=== PATIENT | male | born 1980 | race Caucasian/White ===

== ENCOUNTER → 2019-02-04 | Outpatient (CLI) | payer BC ==
--- NOTE | 2019-02-04 15:23 | REP ---
CHEST PA AND LATERAL: 02/04/2019. COMPARISON: 07/10/2015. CLINICAL HISTORY: Cough. FINDINGS: Two views show the lungs well inflated without infiltrate, effusion, atelectasis, or mass. The heart, mediastinal and hilar contours are grossly normal. Aorta and airway intact. There is no free air under the diaphragm. Bones unremarkable. IMPRESSION: 1. No acute cardiopulmonary change. Electronically Signed by Emmanuel Oliveira MD 02/04/2019 05:22 P
== END ==
LOC: M WUC 11:26
PROVIDERS: ATTEND Physician Assistant
DX: R05 Cough (principal)

== ENCOUNTER → 2019-12-03 | Outpatient (CLI) | payer BC ==
[2019-12-03 14:36] LABS: BASO # 0.1 10^3/uL (0.0-0.2); BASO % 0.7 % (0.0-1.0); EOS # 0.2 10^3/uL (0.0-0.5); EOS % 1.9 % (0.0-3.0); HEMOGLOBIN 16.2 g/dl (13.5-17.5); LYMPH # 3.6 10^3/uL (1.5-5.0); LYMPH % 33.5 % (24.0-44.0); MEAN CORPUSCULAR HEMOGLOBIN 29.5 pg (27.0-33.0); MEAN CORPUSCULAR HGB CONC 34.5 g/dl (32.0-36.5); MEAN CORPUSCULAR VOLUME 85.6 fl (80.0-96.0); MONO # 0.8 10^3/uL (0.0-0.8); NEUTROPHILS # 6.1 10^3/uL (1.5-8.5); NEUTROPHILS % 56.6 % (36.0-66.0); PLATELET COUNT, AUTOMATED 142 10^3/uL (150-450); RED BLOOD COUNT 5.49 10^6/uL (4.30-6.10); WHITE BLOOD COUNT 10.8 10^3/uL (4.0-10.0)
[2019-12-03 14:52] LABS: ALT/SGPT 98 U/L (12-78); BILIRUBIN,TOTAL 0.7 MG/DL (0.2-1.0); BLOOD UREA NITROGEN 10 MG/DL (7-18); CALCIUM LEVEL 8.9 MG/DL (8.5-10.1); CARBON DIOXIDE LEVEL 28 MEQ/L (21-32); CHLORIDE LEVEL 106 MEQ/L (98-107); CHOLESTEROL LEVEL 140 MG/DL (<200); CHOLESTEROL RISK RATIO 5.185 (<5); FREE T4 1.04 NG/DL (0.76-1.46); GLOMERULAR FILTRATION RATE > 60.0 (>60); GLUCOSE, FASTING 94 MG/DL (70-100); HDL CHOLESTEROL 27 MG/DL (>40); LDL CHOLESTEROL 86 MG/DL (<100); NON-HDL-C 113 MG/DL; POTASSIUM SERUM 4.4 MEQ/L (3.5-5.1); SODIUM LEVEL 139 MEQ/L (136-145); THYROID STIMULATING HORMONE 0.971 uIU/ML (0.358-3.740); TOTAL 25(OH) VITAMIN D 17.4 NG/ML (30.0-100.0); TRIGLYCERIDES LEVEL 134 MG/DL (<150)
[2019-12-03 15:45] LABS: HEMOGLOBIN A1c 4.7 %
== END ==
LOC: M WUC 09:05
PROVIDERS: ATTEND Physician Assistant
DX: Z13.220 Encounter for screening for lipoid disorders (principal); Z13.29 Encounter for screening for other suspected endocrine disorder

== ENCOUNTER → 2019-12-16 | Outpatient (CLI) | payer BC ==
[2019-12-16 17:37] LABS: BASO # 0.1 10^3/uL (0.0-0.2); BASO % 0.7 % (0.0-1.0); EOS # 0.3 10^3/uL (0.0-0.5); HEMATOCRIT 43.1 % (42.0-52.0); HEMOGLOBIN 14.7 g/dl (13.5-17.5); LYMPH # 2.9 10^3/uL (1.5-5.0); LYMPH % 38.6 % (24.0-44.0); MEAN CORPUSCULAR HEMOGLOBIN 29.6 pg (27.0-33.0); MEAN CORPUSCULAR HGB CONC 34.1 g/dl (32.0-36.5); MEAN CORPUSCULAR VOLUME 86.9 fl (80.0-96.0); MONO # 0.8 10^3/uL (0.0-0.8); MONO % 10.9 % (0.0-5.0); NEUTROPHILS # 3.4 10^3/uL (1.5-8.5); NEUTROPHILS % 45.5 % (36.0-66.0); PLATELET COUNT, AUTOMATED 177 10^3/uL (150-450); RED BLOOD COUNT 4.96 10^6/uL (4.30-6.10); WHITE BLOOD COUNT 7.4 10^3/uL (4.0-10.0)
[2019-12-22 06:08] LABS: BABESIA MICROTI PCR Negative (Negative); EBV VIRAL CAPSID AG IgM >160.0 U/mL (0.0-35.9); Lyme Disease IgG/IgM Antibodie <0.91 ISR (0.00-0.90); Lyme Disease IgM Ab Quantitati <0.80 index (0.00-0.79)
== END ==
LOC: M WUC 12:07
PROVIDERS: ATTEND Physician Assistant
DX: D72.829 Elevated white blood cell count, unspecified (principal)

== ENCOUNTER 2020-03-26 10:28 | Emergency (ER) | payer BC ==
[~2020-03-26] VITALS: Ht 172.7 cm; Wt 85.5 kg
--- OUTSIDE RECORDS SUMMARY | 2020-03-26 10:34 | CCD | Continuity of Care Document ---
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 AUTM Problems Description No Information Available Social History Type Date Description Comments Sex Unknown ETOH Use Denies alcohol use Tobacco Use Start: Unknown Patient has never smoked Recreational Drug Use Denies Drug Use Sun Exposure Does not use sunscreen Seat Belt/Car Seat Always uses seat belt Allergies, Adverse Reactions, Alerts Description No Known Drug Allergies Medications Active Medications SIG Qnty Indications Ordering Provide r Date Vitamin D (Ergocalciferol) 1.25mg (14907 Ut) Capsules 1 capsule weekly for 12 weeks 12caps Aditi PortilloODinesh 12/05/2019 Valacyclovir HCL 1gm Tablets 2 tablets by mouth at onset of outbreak of cold sore and then 1 tablet in 12 hours. 42tabs B00.89 Carol Nixon D.O. 08/20/2019 Excedrin Migraine [phone] Tab lets as needed pain Unknown Immunizations Description No Information Available Vital Signs Date Vital Result Comment 08/20/2019 10:03am BP Systolic 120 mmHg BP Diastolic 80 mmHg Height 67 inches 5'7" Weight 184.25 lb BMI (Body Mass Index) 28.9 kg/m2 Heart Rate 57 /min Respiratory Rate 18 /min Body Temperature 96.7 F O2 % BldC Oximetry 97 % Patterson Body Weight 148 lb Results Test Acquired Date Facility Test Result H/L Range Note Lyme Disease SCRN With Confirm 12/16/2019 [facility] [address] [place] [address] [phone] Lyme Disease IgG/IgM Antibodie <0.91 ISR Normal 0 .00-0.90 1 Lyme Disease IgM Ab Quantitati <0.80 index Normal 0.00-0.79 2 Ehrlichia Detection PCR 12/16/[address] [address] [phone] A. phagocytophilum PCR Negative Normal Negative 3 Ehrlichia chaffeensis PCR Negative Normal Negative 4 Ebv AB Comprehensive 12/16/2019 [facility] [address] [place] [address] [phone] Ebv Viral Capsid Ag IgM >160.0 U/mL High 0.0-35. 9 5 Ebv Viral Capsid Ag IgG 186.0 U/mL High 0.0-17.9 6 Ebv AB To Nuclear Antigen 396.0 U/mL High 0.0-17.9 7 Ebv Interpretation (SEE NOTE) Normal . 8 Laboratory test finding 12/16/2019 [place] [address] [phone] Babesia Microti PCR Negative Normal Negative 9 CBC With Differential 12/16/[address] [address] [phone] White Blood Count 7.4 10 Normal 4.0-10.0 Red Blood Count 4.96 10 Normal 4.30-6.10 Hemoglobin 14.7 g/dL Normal 13.5-17.5 Hematocrit 43.1 % Normal 42.0-52.0 Mean Corpuscular Volume 86.9 fl Normal 80.0-96.0 Mean Corpuscular Hemoglobin 29.6 pg Normal 27.0-33.0 Mean Corpuscular HGB Conc 34.1 g/dL Normal 32.0-36.5 Red Cell Distribution Width 13.1 % Normal 11.5-14.5 Platelet Count, Automated 177 10 Normal 150-450 Neutrophils % 45.5 % Normal 36.0-66.0 Lymph % 38.6 % Normal 24.0-44.0 George % 10.9 % High 0.0-5.0 Eos % 4.0 % High 0.0-3.0 Baso % 0.7 % Normal 0.0-1.0 Immature Granulocyte % 0.3 % Normal 0-3.0 Nucleated Red Blood Cell % 0.0 % Normal 0-0 Neutrophils # 3.4 10 Normal 1.5-8.5 Lymph # 2.9 10 Normal 1.5-5.0 George # 0.8 10 Normal 0.0-0.8 Eos # 0.3 10 Normal 0.0-0.5 Baso # 0.1 10 Normal 0.0-0.2 CBC With Differential 12/03/[address] [address] [phone] White Blood Count 10.8 10 High 4.0-10.0 Red Blood Count 5.49 10 Normal 4.30-6.10 Hemoglobin 16.2 g/dL Normal 13.5-17.5 Hematocrit 47.0 % Normal 42.0-52.0 Mean Corpuscular Volume 85.6 fl Normal 80.0-96.0 Mean Corpuscular Hemoglobin 29.5 pg Normal 27.0-33.0 Mean Corpuscular HGB Conc 34.5 g/dL Normal 32.0-36.5 Red Cell Distribution Width 12.4 % Normal 11.5-14.5 Platelet Count, Automated 142 10 Low 150-450 Neutrophils % 56.6 % Normal 36.0-66.0 Lymph % 33.5 % Normal 24.0-44.0 George % 7.0 % High 0.0-5.0 Eos % 1.9 % Normal 0.0-3.0 Baso % 0.7 % Normal 0.0-1.0 Immature Granulocyte % 0.3 % Normal 0-3.0 Nucleated Red Blood Cell % 0.0 % Normal 0-0 Neutrophils # 6.1 10 Normal 1.5-8.5 Lymph # 3.6 10 Normal 1.5-5.0 George # 0.8 10 Normal 0.0-0.8 Eos # 0.2 10 Normal 0.0-0.5 Baso # 0.1 10 Normal 0.0-0.2 Comprehensive Metabolic Profil 12/03/[address] [address] [phone] Glucose, Fasting 94 mg/dL Normal 70-100 Blood Urea Nitrogen 10 mg/dL Normal 7-18 Creatinine For GFR 1.00 mg/dL Normal 0.70-1.30 Glomerular Filtration Rate > 60.0 Normal >60 1 0 Sodium Level 139 mEq/L Normal 136-145 Potassium Serum 4.4 mEq/L Normal 3.5-5.1 Chloride Level 106 mEq/L Normal 98-107 Carbon Dioxide Level 28 mEq/L Normal 21-32 Anion Gap 5 mEq/L Low 8-16 Calcium Level 8.9 mg/dL Normal 8.5-10.1 Ast/Sgot 45 U/L High 7-37 Alt/SGPT 98 U/L High 12-78 Alkaline Phosphatase 91 U/L Normal 45-117 Bilirubin,Total 0.7 mg/dL Normal 0.2-1.0 Total Protein 7.0 GM/DL Normal 6.4-8.2 Albumin 4.0 GM/DL Normal 3.2-5.2 Albumin/Globulin Ratio 1.3 Normal Lipid Panel 12/03/[address] [address] [phone] Triglycerides Level 134 mg/dL Normal <150 Cholesterol Level 140 mg/dL Normal <200 HDL Cholesterol 27 mg/dL Low >40 LDL Cholesterol 86 mg/dL Normal <100 Non-HDL-C 113 mg/dL Normal Cholesterol Risk Ratio 5.185 High <5 Hemoglobin A1c 12/03/[address] [address] [phone] Hemoglobin A1c 4.7 % Normal 11 Estimated Average Glucose 88 mg/dL Normal 60-110 Laboratory test finding 12/03/[address] [address] [phone] Total 25(Oh) Vitamin D 17.4 NG/ML Low 30.0-100. 0 Thyroid Stimulating Hormone 0.971 uIU/ML Normal 0.358-3.740 Free T4 1.04 ng/dL Normal 0.76-1.46 1 Negative <0.91 Equivocal 0.91 - 1.09 Positive >1.09 2 Negative <0.80 Equivocal 0.80 - 1.19 Positive >1.19 . IgM levels may peak at 3-6 weeks post infection, then gradually decline. 3 No Anaplasma phagocytophilum DNA detected. A. phagocytophilum has been characterized as the causative agent of Human Granulocytic Ehrlichiosis (HGE). . This test was developed and its performance characteristics determined by [facility]. It has not been cleared or approved by the Food and Drug Administration. 4 No Ehrlichia chaffeensis DNA detected. E. chaffeensis has been characterized as the causative agent of Human Monocytic Ehrlichiosis (HME). . This test was developed and its performance characteristics determined by [facility]. It has not been cleared or approved by the Food and Drug Administration. 5 Negative <36.0 Equivocal 36.0 - 43.9 Positive >43.9 6 Negative <18.0 Equivocal 18.0 - 21.9 Positive >21.9 7 Negative <18.0 Equivocal 18.0 - 21.9 Positive >21.9 8 . EBV Interpretation Chart [place]: Antibody Present + Antibody Absent - Interpretation VCA-IgM VCA-IgG EBNA-IgG . No previous infection/ - - - Susceptible Primary infection (new + + - or recent) Past Infection +or- + + See comment below* + - - *Results indicate infection with EBV at some time however cannot predict the timing of the infection since antibodies to EBNA usually develop after primary infection or, alternatively, approximately 5-10% of patients with EBV never develop antibodies to EBNA. 9 No Babesia DNA detected. This test was developed and its performance characteristics determined by [facility]. It has not been cleared or approved by the Food and Drug Administration. The FDA has determined that such clearance or approval is not necessary. Performed at: [facility] [id number] Cartography/Mapping Technician: Pina Kearney MD, Phone: [phone] Performed at: [facility] [id number] Cartography/Mapping Technician: Jo Ann Dumont MD, Phone: [phone] Units are mL/min/1.73 m2 Chronic Kidney Disease Staging per NKF: Stage I & II GFR >=60 Normal to Mildly Decreased Stage III GFR 30-59 Moderately Decreased Stage IV GFR 15-29 Severely Decreased Stage V GFR <15 Very Little GFR Left ESRD GFR <15 on RN ANESTHETIST 11 REFERENCE RANGES: <=5.6% NORMAL 5.7-6.4% SUGGESTS IMPAIRED GLUCOSE META BOLISM/PREDIABETIC >= 6.5% ABNORMAL Procedures Description No Information Available Medical Devices Description No Information Available Encounters Type Date Location Provider Dx Diagnosis Office Visit 08/20/2019 10:00a Family Medicine [facility] ARUNA Raymond 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 Z13.220 Encounter for screening for lipoid disorders Z13.29 Encounter for screening for oth suspected endocrine disorder M54.5 Low back pain Assessments Date Code Description Provider 08/20/2019 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
--- OUTSIDE RECORDS SUMMARY | 2020-03-26 10:35 | CCD ---
Author Author [facility] Organization [facility] Address Unknown Phone Unavailable Care Team Providers Care Tooling Supervisor Name Role Phone Verbeck Jr, [place] Srikanth PA Unavailable Unavailable Verbeck Jr, [place] Srikanth PA Unavailable Unavailable Verbeck Jr, [place] Srikanth PA Unavailable Unavailable Verbeck Jr, [place] Srikanth PA Unavailable Unavailable Verbeck Jr, [place] Srikanth PA Unavailable Unavailable Verbeck Jr, [place] Srikanth PA Unavailable Unavailable Verbeck Jr, [place] Srikanth PA Unavailable Unavailable Verbeck Jr, [place] Srikanth PA Unavailable Unavailable Verbeck Jr, [place] Srikanth PA Unavailable Unavailable Verbeck Jr, [place] Srikanth PA Unavailable Unavailable Verbeck Jr, [place] Srikanth PA Unavailable Unavailable Verbeck Jr, [place] Srikanth PA Unavailable Unavailable Verbeck Jr, [place] Srikanth PA Unavailable Unavailable Verbeck Jr, Guillermo Srikanth PA Unavailable Unavailable Verbeck Jr, [place] Srikanth PA Unavailable Unavailable Verbeck Jr, [place] Srikanth PA Unavailable Unavailable Verbeck Jr, Guillermo Srikanth PA Unavailable Unavailable Verbeck Jr, Guillermo Srikanth PA Unavailable Unavailable Verbeck Jr, [place] Srikanth PA Unavailable Unavailable Verbeck Jr, [place] Srikanth PA Unavailable Unavailable Verbeck Jr, Guillermo Srikanth PA Unavailable Unavailable Verbeck Jr, [place] Srikanth PA Unavailable Unavailable Verbeck Jr, Guillermo Srikanth PA Unavailable Unavailable Verbeck Jr, Guillermo Srikanth PA Unavailable Unavailable Verbeck Jr, [place] Srikanth PA Unavailable Unavailable Verbeck Jr, [place] Srikanth PA Unavailable Unavailable Verbeck Jr, [place] Srikanth PA Unavailable Unavailable Verbeck Jr, [place] Srikanth PA Unavailable Unavailable Verbeck Jr, [place] Srikanth PA Unavailable Unavailable Verbeck Jr, [place] Srikanth PA Unavailable Unavailable Verbeck Jr, Guillermo Srikanth PA Unavailable Unavailable Verbeck Jr, Guillermo Srikanth PA Unavailable Unavailable Verbeck Jr, Guillermo Srikanth PA Unavailable Unavailable Hutchinson, Vaishnavi Lilli PA Unavailable Unavailable Hutchinson, Vaishnavi Lilli PA Unavailable Unavailable Hutchinson, Vaishnavi Lilli PA Unavailable Unavailable Hutchinson, Vaishnavi Lilli PA Unavailable Unavailable Hutchinson, Vaishnavi Lilli PA Unavailable Unavailable Hutchinson, Vaishnavi Lilli PA Unavailable Unavailable Hutchinson, Vaishnavi Lilli PA Unavailable Unavailable Hutchinson, Vaishnavi Lilli PA Unavailable Unavailable Hutchinson, Vaishnavi Lilli PA Unavailable Unavailable Hutchinson, Vaishnavi Lilli PA Unavailable Unavailable O'rick, A Lawrence PA Unavailable Unavailable O'rick, A Lawrence PA Unavailable Unavailable O'rick, A Lawrence PA Unavailable Unavailable O'rick, A Lawrence PA Unavailable Unavailable O'rick, A Lawrence PA Unavailable Unavailable O'rick, A Lawrence PA Unavailable Unavailable O'rick, A Lawrence PA Unavailable Unavailable O'rick, A Lawrence PA Unavailable Unavailable O'rick, A Lawrence PA Unavailable Unavailable O'rick, A Lawrence PA Unavailable Unavailable O'rick, A Lawrence PA Unavailable Unavailable O'rick, A Lawrence PA Unavailable Unavailable O'rick, A Lawrence PA Unavailable Unavailable O'rick, A Lawrence PA Unavailable Unavailable O'rick, A Lawrence PA Unavailable Unavailable O'rick, A Lawrence PA Unavailable Unavailable O'rick, A Lawrence PA Unavailable Unavailable O'rick, A Lawrence PA Unavailable Unavailable O'rick, A Lawrence PA Unavailable Unavailable O'rick, A Lawrence PA Unavailable Unavailable O'rick, A Lawrence PA Unavailable Unavailable O'rick, A Lawrence PA Unavailable Unavailable O'rick, A Lawrence PA Unavailable Unavailable O'rick, A Lawrence PA Unavailable Unavailable O'rick, A Lawrence PA Unavailable Unavailable O'rick, A Lawrence PA Unavailable Unavailable O'rick, A Lawrence PA Unavailable Unavailable O'rick, A Lawrence PA Unavailable Unavailable O'rick, A Lawrence PA Unavailable Unavailable O'irck, A Lawrence PA Unavailable Unavailable O'rick, A Lawrence PA Unavailable Unavailable O'rick, A Lawrence PA Unavailable Unavailable LETTIERE, A LAWRENCE PA Unavailable Unavailable LETTIERE, A LAWRENCE PA Unavailable Unavailable LETTIERE, A LAWRENCE PA Unavailable Unavailable LETTIERE, A LAWRENCE PA Unavailable Unavailable LETTIERE, A LAWRENCE PA Unavailable Unavailable LETTIERE, A LAWRENCE PA Unavailable Unavailable LETTIERE, A LAWRENCE PA Unavailable Unavailable LETTIERE, A LAWRENCE PA Unavailable Unavailable LETTIERE, A LAWRENCE PA Unavailable Unavailable LETTIERE, A LAWRENCE PA Unavailable Unavailable LETTIERE, A LAWRENCE PA Unavailable Unavailable LETTIERE, A LAWRENCE PA Unavailable Unavailable LETTIERE, A LAWRENCE PA Unavailable Unavailable LETTIERE, A LAWRENCE PA Unavailable Unavailable LETTIERE, A LAWRENCE PA Unavailable Unavailable LETTIERE, A LAWRENCE PA Unavailable Unavailable LETTIERE, A LAWRENCE PA Unavailable Unavailable LETTIERE, A LAWRENCE PA Unavailable Unavailable LETTIERE, A LAWRENCE PA Unavailable Unavailable LETTIERE, A LAWRENCE PA Unavailable Unavailable LETTIERE, A LAWRENCE PA Unavailable Unavailable LETTIERE, A LAWRENCE PA Unavailable Unavailable LETTIERE, A LAWRENCE PA Unavailable Unavailable LETTIERE, A LAWRENCE PA Unavailable Unavailable LETTIERE, A LAWRENCE PA Unavailable Unavailable LETTIERE, A LAWRENCE PA Unavailable Unavailable LETTIERE, A LAWRENCE PA Unavailable Unavailable LETTIERE, A LAWRENCE PA Unavailable Unavailable LETTIERE, A LAWRENCE PA Unavailable Unavailable Re-disclosure Warning The records that you are about to access may contain information from federally-assisted alcohol or drug abuse programs. If such information is present, then the following federally mandated warning applies: This information has been disclosed to you from records protected by federal confidentiality rules (42 CFR part 2). The federal rules prohibit you from making any further disclosure of this information unless further disclosure is expressly permitted by the written consent of the person to whom it pertains or as otherwise permitted by 42 CFR part 2. A general authorization for the release of medical or other information is NOT sufficient for this purpose. The Federal rules restrict any use of the information to criminally investigate or prosecute any alcohol or drug abuse patient.The records that you are about to access may contain highly sensitive health information, the redisclosure of which is protected by Article 27-F of the [facility] Public Health law. If you continue you may have access to information: Regarding HIV / AIDS; Provided by facilities licensed or operated by the [facility] Office of Mental Health; or Provided by the [facility] Office for People With Developmental Disabilities. If such information is present, then the following [facility] mandated warning applies: This information has been disclosed to you from confidential records which are protected by state law. State law prohibits you from making any further disclosure of this information without the specific written consent of the person to whom it pertains, or as otherwise permitted by law. Any unauthorized further disclosure in violation of state law may result in a fine or residential sentence or both. A general authorization for the release of medical or other information is NOT sufficient authorization for further disc losure. Family History Family Member Name Family Member Gender Family Member Status Date o f Status Description Data Source(s) Unknown Unknown Problem [facility] ([facility] Unknown Unknown Problem [facility] ([facility] Unknown Unknown Problem [facility] ([facility] Unknown Unknown Problem [facility] ([facility]) Encounters Encounter Providers Location Date Indications Data Source(s ) Outpatient Attender: LAWRENCE rodriguez 12/03/2019 08:30:00 AM EDT [facility] Outpatient Attender: Lawrence VALDOVINOS [facility] 08/20/2019 10:00:00 AM EDT [facility] ([facility]) Outpatient Referrer: Srikanth Rogers Jr 02/18/2019 07:46:00 PM EST [facility] Outpatient Attender: Lilli rodriguez 02/04/2019 10:00:00 AM EST [facility] ([facility] Medications Medication Brand Name Start Date Product Form Dose Route Admi nistrative Instructions Pharmacy Instructions Status Indications Reaction Description Data Source(s) 1 gram 12/27/2019 12:00:00 AM EDT tablet 30 TAKE 2 TABLETS BY MOUTH AT ONSET OF OUTBREAK OF COLD SORE AND THEN 1 TABLET IN 12 HOURS TAKE 2 TABLETS BY MOUTH AT ONSET OF OUTBREAK OF COLD SORE AND THEN 1 TABLET IN 12 HOURS SOLD: 12/27/2019 [facility] 1,250 mcg (50,000 unit) 12/06/2019 12:00:00 AM EDT capsule 12 TAKE 1 CAPSULE BY MOUTH ONCE A WEEK TAKE 1 CAPSULE BY MOUTH ONCE A WEEK SOLD: 12/27/2019 [facility] Ergocalciferol [id number] UNT Oral Capsule Vitamin D (Ergocalcife rol) 12/05/2019 12:00:00 AM EDT active [facility] ([facility]) valacyclovir 1000 MG Oral Tablet Valacyclovir HCL 08/20/2019 12:00: 00 AM EDT ORAL active [facility] ([facility]) Insurance Providers Payer name Policy type / Coverage type Policy ID Covered alliance party ID Covered alliance party's relationship to peraza Policy [place] Plan Information [place] PPO 302/307 [id number] SP [id number] EXCELLUS BCBS B [id number] S TNY [id number] EXCELLUS H [id number] Self [id number] BCBS/Blue Card Commercial [id number] Self T [id number] Excellus BCBS Medigap Part B Self Excellus BCBS Health Maintenance Organization (HMO) Self BCBS [place] PPO 302/307 [id number] SP [id number] Blue Cross Blue Shield P [id number] SELF [id number] EXCELLUS H [id number] Self [id number] BC/BS Of [place] Commercial Self BCBS OF [place] BC [id number] S TNY [id number] BCBS [place] BC [id number] S TNY [id number] Results ID Date Data Source [id number] 12/16/2019 12:09:00 PM EDT [facility] ([facility]) Name Value Range Interpretation Code Description Data Lupe rce(s) Supporting Document(s) White Blood Count 7.4 10 4.0-10.0 Normal (applies to non-numeri c results) [facility] ([facility]) Red Blood Count 4.96 10 4.30-6.10 Normal (applies to non-numeric results) [facility] ([facility]) Hemoglobin 14.7 g/dL 13.5-17.5 Normal (applies to non-numeric resul ts) [facility] ([facility]) Hematocrit 43.1 % 42.0-52.0 Normal (applies to non-numeric resul ts) [facility] ([facility]) Mean Corpuscular Volume 86.9 fl 80.0-96.0 Normal ( applies to non-numeric results) [facility] ([facility]) Red Cell Distribution Width 13.1 % 11.5-14.5 Norm al (applies to non-numeric results) [facility] ([facility]) Mean Corpuscular HGB Conc 34.1 g/dL 32.0-36.5 Normal (applies to non-numeric results) [facility] ([facility]) Mean Corpuscular Hemoglobin 29.6 pg 27.0-33.0 Norm al (applies to non-numeric results) [facility] ([facility]) Lymph % 38.6 % 24.0-44.0 Normal (applies to non-numeric resul ts) [facility] ([facility]) Neutrophils % 45.5 % 36.0-66.0 Normal (applies to non-numeric re sults) [facility] ([facility]) Platelet Count, Automated 177 10 150-450 Normal (applies to non-numeric results) [facility] ([facility]) Baso % 0.7 % 0.0-1.0 Normal (applies to non-numeric resul ts) [facility] ([facility]) [place] % 10.9 % 0.0-5.0 Above high normal [facility] ([facility]) Eos % 4.0 % 0.0-3.0 Above high normal [facility] ([facility]) Immature Granulocyte % 0.3 % 0-3.0 Normal (applies to non-n umeric results) [facility] ([facility]) Lymph # 2.9 10 1.5-5.0 Normal (applies to non-numeric resul ts) [facility] ([facility]) Neutrophils # 3.4 10 1.5-8.5 Normal (applies to non-numeric re sults) [facility] ([facility]) Nucleated Red Blood Cell % 0.0 % 0-0 Normal (applies to n on-numeric results) [facility] ([facility]) Baso # 0.1 10 0.0-0.2 Normal (applies to non-numeric resul ts) [facility] ([facility]) Eos # 0.3 10 0.0-0.5 Normal (applies to non-numeric resul ts) [facility] ([facility]) [place] # 0.8 10 0.0-0.8 Normal (applies to non-numeric resul ts) [facility] ([facility]) ID Date Data Source [id number] 12/16/2019 12:09:00 PM EDT [facility] ([facility]) Name Value Range Interpretation Code Description Data Lupe rce(s) Supporting Document(s) Babesia microti DNA [Presence] in Blood by Probe and target amplification method Laboratory test result Normal (applies to non-numeric results) [facility] ([facility]) No Babesia DNA detected. This test was developed and its performance characteristics determined by [employer]. It has not been cleared or approved by the Food and Drug Administration. The FDA has determined that such clearance or approval is not necessary. Performed at: - [facility] [id number] Scrap Metal Burner: Pina Kearney MD, Phone: [phone] Performed at: [facility] [id number] Scrap Metal Burner: Jo Ann Dumont MD, Phone: [phone] ID Date Data Source [id number] 12/16/2019 12:09:00 PM EDT [facility] ([facility]) Name Value Range Interpretation Code Description Data Lupe rce(s) Supporting Document(s) Ebv Viral Capsid Ag IgM Laboratory test result 0.0-35.9 Above high normal [facility] ([facility]) <content>Negative <36.0</content>
<content>Equivocal 36.0 - 43.9</content>
<content>Positive >43.9</content>
<content></content> Ebv AB To Nuclear Antigen 396.0 U/mL 0.0-17.9 Above high normal [facility] ([facility]) <content>Negative <18.0</content>
<content>Equivocal 18.0 - 21.9</content>
<content>Positive >21.9</content>
<content></content> Ebv Viral Capsid Ag IgG 186.0 U/mL 0.0-17.9 Above high normal [facility] ([facility]) <content>Negative <18.0</content>
<content>Equivocal 18.0 - 21.9</content>
<content>Positive >21.9</content>
<content></content> Ebv Interpretation Laboratory test result Normal (applies to non-numeric results) [facility] ([facility]) . EBV Interpretation Chart [place]: Antibody Present [...] with EBV never develop antibodies to EBNA. ID Date Data Source [id number] 12/16/2019 12:09:00 PM EDT [facility] ([facility]) Name Value Range Interpretation Code Description Data Lupe rce(s) Supporting Document(s) Laboratory test finding (navigational concept) Laboratory test r esult Normal (applies to non-numeric results) [facility] ([facility]) No Anaplasma phagocytophilum DNA detecte d. A. phagocytophilum has been characterized as the causative agent of Human Granulocytic Ehrlichiosis (HGE). . This test was developed and its performance characteristics determined by [employer]. It has not been cleared or approved by the Food and Drug Administration. Laboratory test finding (navigational concept) Laboratory test r esult Normal (applies to non-numeric results) [facility] ([facility]) No Ehrlichia chaffeensis DNA detected. E. chaffeensis has been characterized as the causative agent of Human Monocytic Ehrlichiosis (HME). . This test was developed and its performance characteristics determined by [employer]. It has not been cleared or approved by the Food and Drug Administration. ID Date Data Source [id number] 12/16/2019 12:09:00 PM EDT [facility]) Name Value Range Interpretation Code Description Data Lupe rce(s) Supporting Document(s) Lyme Disease IgM Ab Quantitati Laboratory test result 0.00-0.79 Normal (applies to non-numeric results) [facility] ([facility]) <content>Negative <0.80</content >
<content>Equivocal 0.80 - 1.19</content>
<content>Positive >1.19</content>
<content>.</content>
<content>IgM levels may peak at 3-6 weeks post infection, then</content>
<content>gradually decline.</content>
<content></content> Lyme Disease IgG/IgM Antibodie Laboratory test result 0.00-0.90 Normal (applies to non-numeric results) [facility] ([facility]) <content>Negative <0.91</content >
<content>Equivocal 0.91 - 1.09</content>
<content>Positive >1.09</content>
<content></content> ID Date Data Source [id number] 12/03/2019 09:14:00 AM EDT [facility]) Name Value Range Interpretation Code Description Data Lupe rce(s) Supporting Document(s) Thyrotropin [Units/volume] in Serum or Plasma 0.971 uIU/ML 0. 358-3.740 Normal (applies to non-numeric results) [facility] ([facility]) Calcidiol [Mass/volume] in Serum or Plasma 17.4 ng/mL 30.0- 100.0 Below low normal [facility] ([facility]) Thyroxine (T4) free [Mass/volume] in Serum or Plasma 1.04 ng/dL 0.76-1.46 Normal (applies to non-numeric results) [facility]) ID Date Data Source [id number] 12/03/2019 09:14:00 AM EDT [facility]) Name Value Range Interpretation Code Description Data Lupe rce(s) Supporting Document(s) Hemoglobin A1c 4.7 % Normal (applies to non-numeric r esults) [facility] ([facility]) <content>REFERENCE RANGES:</content><br/ ><content></content>
<content><=5.6% NORMAL</content>
<content>5.7-6.4% SUGGESTS IMPAIRED GLUCOSE METABOLISM/PREDIABETIC</content>
<content>>= 6.5% ABNORMAL</content>
<content></content> Estimated Average Glucose 88 mg/dL 60-110 Normal (applies to non-numeric results) [facility] ([facility]) ID Date Data Source [id number] 12/03/2019 09:14:00 AM EDT [facility]) Name Value Range Interpretation Code Description Data Lupe rce(s) Supporting Document(s) Triglycerides Level 134 mg/dL Normal (applies to non-nume nila results) [facility] ([facility]) HDL Cholesterol 27 mg/dL Below low normal [facility] ([facility]) LDL Cholesterol 86 mg/dL Normal (applies to non-numeric results) [facility] ([facility]) Cholesterol Level 140 mg/dL Normal (applies to non-numeri c results) [facility] ([facility]) Cholesterol Risk Ratio 5.185 Above high normal [facility] ([facility]) Non-HDL-C 113 mg/dL Normal (applies to non-numeric resul ts) [facility] ([facility]) ID Date Data Source [id number] 12/03/2019 09:14:00 AM EDT [facility]) Name Value Range Interpretation Code Description Data Lupe rce(s) Supporting Document(s) Glucose, Fasting 94 mg/dL 70-100 Normal (applies to non-numeric results) [facility] ([facility]) Blood Urea Nitrogen 10 mg/dL 7-18 Normal (applies to non-nume nila results) [facility] ([facility]) Creatinine For GFR 1.00 mg/dL 0.70-1.30 Normal (applies to non -numeric results) [facility] ([facility]) Potassium Serum 4.4 meq/L 3.5-5.1 Normal (applies to non-numeric results) [facility] ([facility]) Glomerular Filtration Rate Laboratory test result Normal (applies to non- numeric results) [facility]) <content>Units are mL/min/1.73 m2</content>
<content></content>
<content>Chronic Kidney Disease Staging per NKF:</content>
<content></content>
<content>Stage I & II GFR >=60 Normal to Mildly Decreased</content>
<content>Stage III GFR 30- 59 Moderately Decreased</content>
<content>Stage IV GFR 15-29 Severely Decreased</content>
<content>Stage V GFR <15 Very Little GFR Left</content>
<content>ESRD GFR <15 on LABOR REPRESENTATIVE</content>
<content></content> Sodium Level 139 meq/L 136-145 Normal (applies to non-numeric res ults) [facility] ([facility]) Carbon Dioxide Level 28 meq/L 21-32 Normal (applies to non-num magda results) [facility] ([facility]) Chloride Level 106 meq/L 98-107 Normal (applies to non-numeric r esults) [facility] ([facility]) Anion Gap 5 meq/L 8-16 Below low normal [facility] ( [facility]) Alt/SGPT 98 U/L 12-78 Above high normal [facility] ([facility]) Calcium Level 8.9 mg/dL 8.5-10.1 Normal (applies to non-numeric re sults) [facility] ([facility]) Ast/Sgot 45 U/L 7-37 Above high normal [facility] ([facility]) Alkaline Phosphatase 91 U/L 45-117 Normal (applies to non-num magda results) [facility] ([facility]) Total Protein 7.0 GM/DL 6.4-8.2 Normal (applies to non-numeric re sults) [facility] ([facility]) Bilirubin,Total 0.7 mg/dL 0.2-1.0 Normal (applies to non-numeric results) [facility] ([facility]) Albumin 4.0 GM/DL 3.2-5.2 Normal (applies to non-numeric resul ts) [facility] ([facility]) Albumin/Globulin Ratio 1.3 Normal (applies to non-n umeric results) [facility] ([facility]) ID Date Data Source [id number] 12/03/2019 09:14:00 AM EDT [facility] ([facility]) Name Value Range Interpretation Code Description Data Lupe rce(s) Supporting Document(s) White Blood Count 10.8 10 4.0-10.0 Above high normal [facility] ([facility]) Hemoglobin 16.2 g/dL 13.5-17.5 Normal (applies to non-numeric resul ts) [facility] ([facility]) Red Blood Count 5.49 10 4.30-6.10 Normal (applies to non-numeric results) [facility] ([facility]) Hematocrit 47.0 % 42.0-52.0 Normal (applies to non-numeric resul ts) [facility] ([facility]) Mean Corpuscular Volume 85.6 fl 80.0-96.0 Normal ( applies to non-numeric results) [facility] ([facility]) Mean Corpuscular Hemoglobin 29.5 pg 27.0-33.0 Norm al (applies to non-numeric results) [facility] ([facility]) Mean Corpuscular HGB Conc 34.5 g/dL 32.0-36.5 Normal (applies to non-numeric results) [facility] ([facility]) Red Cell Distribution Width 12.4 % 11.5-14.5 Norm al (applies to non-numeric results) [facility] ([facility]) Neutrophils % 56.6 % 36.0-66.0 Normal (applies to non-numeric re sults) [facility] [facility] Platelet Count, Automated 142 10 150-450 Below low normal [facility] ([facility]) Lymph % 33.5 % 24.0-44.0 Normal (applies to non-numeric resul ts) [facility] ([facility]) Eos % 1.9 % 0.0-3.0 Normal (applies to non-numeric resul ts) [facility] ([facility]) Baso % 0.7 % 0.0-1.0 Normal (applies to non-numeric resul ts) [facility] ([facility]) [place] % 7.0 % 0.0-5.0 Above high normal [facility] ([facility]) Immature Granulocyte % 0.3 % 0-3.0 Normal (applies to non-n umeric results) [facility] ([facility]) Nucleated Red Blood Cell % 0.0 % 0-0 Normal (applies to n on-numeric results) [facility] ([facility]) Neutrophils # 6.1 10 1.5-8.5 Normal (applies to non-numeric re sults) [facility] ([facility]) Eos # 0.2 10 0.0-0.5 Normal (applies to non-numeric resul ts) [facility] ([facility]) Lymph # 3.6 10 1.5-5.0 Normal (applies to non-numeric resul ts) [facility] ([facility]) [place] # 0.8 10 0.0-0.8 Normal (applies to non-numeric resul ts) [facility] ([facility]) Baso # 0.1 10 0.0-0.2 Normal (applies to non-numeric resul ts) [facility] ([facility]) Procedure Vital Signs ID Date Data Source UNK Name Value Range Interpretation Code Description Data Source(s) Body mass index (BMI) [Ratio] 27.4 kg/m2 27.4 k g/m2 [facility], [facility]) Body height 68 [in_i] 68 [in_i] [facility] ([facility]) 5'8" Body weight 180.00 [lb_av] 180.00 [lb_av] [facility] ([facility]) Body temperature 98.3 [degF] 98.3 [degF] [facility]) Oxygen saturation in Arterial blood by Pulse oximetry 97 % 97 % [facility] ([facility]) Heart rate 88 /min 88 /min [facility] ([facility], [facility]) Diastolic blood pressure 80 mm[Hg] 80 mm[Hg] [facility] ([facility], [facility]) Systolic blood pressure 120 mm[Hg] 120 mm[Hg] [facility] ([facility], [facility]) [place] body weight 148 [lb_av] 148 [lb_av] [facility] Oxygen saturation in Arterial blood by Pulse oximetry 97 % 97 % [facility]) Body temperature 96.7 [degF] 96.7 [degF] [facility] ([facility]) Respiratory rate 18 /min 18 /min [facility] ( [facility]) Heart rate 57 /min 57 /min [facility] ([facility]) Body mass index (BMI) [Ratio] 28.9 kg/m2 28.9 k g/m2 [facility] ([facility]) Body weight 184.25 [lb_av] 184.25 [lb_av] [facility] ([facility]) Body height 67 [in_i] 67 [in_i] [facility] ([facility]) 5'7" Diastolic blood pressure 80 mm[Hg] 80 mm[Hg] [facility] ([facility]) Systolic blood pressure 120 mm[Hg] 120 mm[Hg] [facility] ([facility]) Body temperature 96.8 [degF] 96.8 [degF] [facility] ([facility], [facility]) Oxygen saturation in Arterial blood by Pulse oximetry 97 % 97 % [facility] ([facility], [facility]) Respiratory rate 16 /min 16 /min [facility] ( [facility], [facility]) Heart rate 50 /min 50 /min [facility] ([facility], [facility]) Diastolic blood pressure 84 mm[Hg] 84 mm[Hg] [facility] ([facility], [facility]) Systolic blood pressure 116 mm[Hg] 116 mm[Hg] [facility] ([facility], [facility]) Body mass index (BMI) [Ratio] 26.6 kg/m2 26.6 k g/m2 [facility] ([facility]) Body height 69 [in_i] 69 [in_i] [facility] ([facility], [facility]) 5'9" Body weight 180.00 [lb_av] 180.00 [lb_av] ABDIAS Gonzales ([facility], [facility])
[2020-03-26] MEDS ORDERED: KETOROLAC 30 MG/ML 1ML VIAL IV ONE (11:30)
[2020-03-26] MEDS ORDERED: NS 1,000 ML IV ONE ×2 (11:30→13:15)
--- OUTSIDE RECORDS SUMMARY | 2020-03-26 11:53 | CCD ---
Author Author [facility] Organization [facility] Address Unknown Phone Unavailable Care Team Providers Care Dental Technician Name Role Phone Verbeck Jr, [place] Srikanth PA Unavailable Unavailable Verbeck Jr, [place] Srikanth PA Unavailable Unavailable Verbeck Jr, Guill[place] Srikanth PA Unavailable Unavailable Verbeck Jr, [place] Srikanth PA Unavailable Unavailable Verbeck Jr, [place] Srikanth PA Unavailable Unavailable Verbeck Jr, [place] Srikanth PA Unavailable Unavailable Verbeck Jr, [place] Srikanth PA Unavailable Unavailable Verbeck Jr, [place] Srikanth PA Unavailable Unavailable Verbeck Jr, [place] Srikanth PA Unavailable Unavailable Verbeck Jr, [place] Srikanth PA Unavailable Unavailable Verbeck Jr, [place] Srikanth PA Unavailable Unavailable Verbeck Jr, Guillermo Srikanth PA Unavailable Unavailable Verbeck Jr, [place] Srikanth PA Unavailable Unavailable Verbeck Jr, Guill[place] Srikanth PA Unavailable Unavailable Verbeck Jr, [place] Srikanth PA Unavailable Unavailable Verbeck Jr, [place] Srikanth PA Unavailable Unavailable Verbeck Jr, [place] Srikanth PA Unavailable Unavailable Verbeck Jr, [place] Srikanth PA Unavailable Unavailable Verbeck Jr, [place] Srikanth PA Unavailable Unavailable Verbeck Jr, [place] Srikanth PA Unavailable Unavailable Verbeck Jr, [place] Srikanth PA Unavailable Unavailable Verbeck Jr, [place] Srikanth PA Unavailable Unavailable Verbeck Jr, Guillermo Srikanth PA Unavailable Unavailable Verbeck Jr, Guill[place] Srikanth PA Unavailable Unavailable Verbeck Jr, [place] Srikanth PA Unavailable Unavailable Verbeck Jr, Guill[place] Srikanth PA Unavailable Unavailable Verbeck Jr, Guill[place] Srikanth PA Unavailable Unavailable Verbeck Jr, Guill[place] Srikanth PA Unavailable Unavailable Verbeck Jr, [place] Srikanth PA Unavailable Unavailable Verbeck Jr, Guill[place] Srikanth PA Unavailable Unavailable Verbeck Jr, [place] Srikanth PA Unavailable Unavailable Verbeck Jr, [place] Srikanth PA Unavailable Unavailable Verbeck Jr, Guillermo [...] is protected by Article 27-F of the [facility] Public Health law. If you continue you may have access to information: Regarding HIV / AIDS; Provided by facilities licensed or operated by the [facility] Office of Mental Health; or Provided by the [facility] Office for People With Developmental Disabilities. If such information is present, then the following [facility] mandated warning applies: This information has been [...] law may result in a fine or penitentiary sentence or both. A general authorization for the release of medical or other information is NOT sufficient authorization for further disc losure. Family History Family Member Name Family Member Gender Family Member Status Date o f Status Description Data Source(s) Unknown Unknown Problem [facility] ([facility] Unknown Unknown Problem [facility] ([facility] Unknown Unknown Problem [facility] ([facility] Unknown Unknown Problem [facility] ([facility]) Encounters Encounter Providers Location Date Indications Data Source(s ) Outpatient Attender: LAWRENCE rodriguez 12/03/2019 08:30:00 AM EDT [facility] ([facility] Outpatient Attender: Lawrence VALDOVINOS [facility] 08/20/2019 10:00:00 AM EDT [facility] ([facility]) Outpatient Referrer: Srikanth Rogers Jr 02/18/2019 07:46:00 PM EST [facility] Outpatient Attender: Lilli rodriguez 02/04/2019 10:00:00 AM EST [facility] ([facility]) Medications Medication Brand Name Start Date Product [...] A WEEK SOLD: 12/27/2019 [facility] Ergocalciferol 18319 UNT Oral Capsule Vitamin D (Ergocalcife rol) 12/05/2019 12:00:00 AM EDT active [facility] ([facility]) valacyclovir 1000 MG Oral Tablet Valacyclovir HCL 08/20/2019 12:00: 00 AM EDT ORAL active [facility] ([facility]) Insurance Providers Payer name Policy type / Coverage type Policy ID Covered libertarian ID Covered libertarian's relationship to peraza Policy [place] Plan Information [place] PPO 302/307 [id number] SP [id number] EXCELLUS BCBS B [id number] S TNY [id number] EXCELLUS H [id number] Self [id number] BCBS/Blue Card Commercial [id number] Self T [id number] Excellus BCBS Medigap Part B Self Excellus BCBS Health Maintenance Organization (HMO) Self [place]BS [place] PPO 302/307 [id number] SP [id number] Blue Cross Blue Shield P [id number] SELF [id number] EXCELLUS H [id number] Self [id number] BC/BS Of [place] Commercial Self BCBS OF [place] BC [id number] S TNY [id number] BCBS [place] BC [id number] S TNY [id number] Results ID Date Data Source [id number] 12/16/2019 12:09:00 PM EDT [facility] ([facility]) Name Value Range Interpretation Code Description Data Lupe rce(s) Supporting Document(s) White Blood Count 7.4 10 4.0-10.0 Normal (applies to non-numeri c results) [facility] ([facility]) Red Blood Count 4.96 10 4.30-6.10 Normal (applies to non-numeric results) [facility] ([facility]) Hemoglobin 14.7 g/dL 13.5-17.5 Normal (applies to non-numeric resul ts) [facility] ([facility]) Hematocrit 43.1 % 42.0-52.0 Normal (applies to non-numeric resul ts) [facility] ([facility]) Mean Corpuscular Volume 86.9 fl 80.0-96.0 Normal ( applies to non-numeric results) [facility] ([facility]) Red Cell Distribution Width 13.1 % 11.5-14.5 Norm al (applies to non-numeric results) [facility] ([facility]) Mean Corpuscular HGB Conc 34.1 g/dL 32.0-36.5 Normal (applies to non-numeric results) [facility] ([facility]) Mean Corpuscular Hemoglobin 29.6 pg 27.0-33.0 Norm al (applies to non-numeric results) [facility] ([facility]) Lymph % 38.6 % 24.0-44.0 Normal (applies to non-numeric resul ts) [facility] ([facility]) Neutrophils % 45.5 % 36.0-66.0 Normal (applies to non-numeric re sults) [facility] ([facility]) Platelet Count, Automated 177 10 150-450 Normal (applies to non-numeric results) [facility] ([facility]) Baso % 0.7 % 0.0-1.0 Normal (applies to non-numeric resul ts) [facility] ([facility]) Bremer % 10.9 % 0.0-5.0 Above high normal [facility] ([facility]) Eos % 4.0 % 0.0-3.0 Above high normal [facility] ([facility]) Immature Granulocyte % 0.3 % 0-3.0 Normal (applies to non-n umeric results) [facility] ([facility]) Lymph # 2.9 10 1.5-5.0 Normal (applies to non-numeric resul ts) [facility] ([facility]) Neutrophils # 3.4 10 1.5-8.5 Normal (applies to non-numeric re sults) [facility] ([facility]) Nucleated Red Blood Cell % 0.0 % 0-0 Normal (applies to n on-numeric results) [facility] ([facility]) Baso # 0.1 10 0.0-0.2 Normal (applies to non-numeric resul ts) [facility] ([facility]) Eos # 0.3 10 0.0-0.5 Normal (applies to non-numeric resul ts) [facility] ([facility]) Bremer # 0.8 10 0.0-0.8 Normal (applies to non-numeric resul ts) [facility] ([facility]) ID Date Data Source [id number] 12/16/2019 12:09:00 PM EDT [facility] ([facility]) Name Value Range Interpretation Code Description Data Lupe rce(s) Supporting Document(s) Babesia microti DNA [Presence] in Blood by Probe and target amplification method Laboratory test result Normal (applies to non-numeric results) [facility] ([facility]) No Babesia DNA detected. This test was developed and its performance characteristics determined by [employer] [facility]. It has not been cleared or approved by the Food and Drug Administration. The FDA has determined that such clearance or approval is not necessary. Performed at: - [address] [id number] [place] Hand: Pina Kearney MD, Phone: [phone] Performed at: [facility] [id number] [place] Hand: Jo Ann Dumont MD, Phone: [phone] ID Date Data Source [id number] 12/16/2019 12:09:00 PM EDT [facility] ([facility]) Name Value Range Interpretation Code Description Data Lupe rce(s) Supporting Document(s) Ebv Viral Capsid Ag IgM Laboratory test result 0.0-35.9 Above high normal [facility] ([facility]) <content>Negative <36.0</content>
<content>Equivocal 36.0 - 43.9</content>
<content>Positive >43.9</content>
<content></content> Ebv AB To Nuclear Antigen 396.0 U/mL 0.0-17.9 Above high normal [facility] ([facility]) <content>Negative <18.0</content>
<content>Equivocal 18.0 - 21.9</content>
<content>Positive >21.9</content>
<content></content> Ebv Viral Capsid Ag IgG 186.0 U/mL 0.0-17.9 Above high normal [facility] ([facility]) <content>Negative <18.0</content>
<content>Equivocal 18.0 - 21.9</content>
<content>Positive >21.9</content>
<content></content> Ebv Interpretation Laboratory test result Normal (applies to non-numeric results) [facility] ([facility]) . EBV Interpretation Chart [place]: Antibody Present [...] antibodies to EBNA. ID Date Data Source [id number] 12/16/2019 12:09:00 PM EDT [facility] ([facility]) Name Value Range Interpretation Code Description Data Lupe rce(s) Supporting Document(s) Laboratory test finding (navigational concept) Laboratory test r esult Normal (applies to non-numeric results) [facility] ([facility]) No Anaplasma phagocytophilum DNA detecte d. A. phagocytophilum has been characterized as the causative agent of Human Granulocytic Ehrlichiosis (HGE). . This test was developed and its performance characteristics determined by [facility]. It has not been cleared or approved by the Food and Drug Administration. Laboratory test finding (navigational concept) Laboratory test r esult Normal (applies to non-numeric results) [facility] ([facility]) No Ehrlichia chaffeensis DNA detected. E. chaffeensis has been characterized as the causative agent of Human Monocytic Ehrlichiosis (HME). . This test was developed and its performance characteristics determined by [facility]. It has not been cleared or approved by the Food and Drug Administration. ID Date Data Source [id number] 12/16/2019 12:09:00 PM EDT [facility]) Name Value Range Interpretation Code Description Data Lupe rce(s) Supporting Document(s) Lyme Disease IgM Ab Quantitati Laboratory test result 0.00-0.79 Normal (applies to non-numeric results) [facility] ([facility]) <content>Negative <0.80</content >
<content>Equivocal 0.80 - 1.19</content>
<content>Positive >1.19</content>
<content>.</content>
<content>IgM levels may peak at 3-6 weeks post infection, then</content>
<content>gradually decline.</content>
<content></content> Lyme Disease IgG/IgM Antibodie Laboratory test result 0.00-0.90 Normal (applies to non-numeric results) [facility] ([facility]) <content>Negative <0.91</content >
<content>Equivocal 0.91 - 1.09</content>
<content>Positive >1.09</content>
<content></content> ID Date Data Source [id number] 12/03/2019 09:14:00 AM EDT [facility]) Name Value Range Interpretation Code Description Data Lupe rce(s) Supporting Document(s) Thyrotropin [Units/volume] in Serum or Plasma 0.971 uIU/ML 0. 358-3.740 Normal (applies to non-numeric results) [facility] ([facility]) Calcidiol [Mass/volume] in Serum or Plasma 17.4 ng/mL 30.0- 100.0 Below low normal [facility] ([facility]) Thyroxine (T4) free [Mass/volume] in Serum or Plasma 1.04 ng/dL 0.76-1.46 Normal (applies to non-numeric results) [facility]) ID Date Data Source [id number] 12/03/2019 09:14:00 AM EDT [facility]) Name Value Range Interpretation Code Description Data Lupe rce(s) Supporting Document(s) Hemoglobin A1c 4.7 % Normal (applies to non-numeric r esults) [facility] ([facility]) <content>REFERENCE RANGES:</content><br/ ><content></content>
<content><=5.6% NORMAL</content>
<content>5.7-6.4% SUGGESTS IMPAIRED GLUCOSE METABOLISM/PREDIABETIC</content>
<content>>= 6.5% ABNORMAL</content>
<content></content> Estimated Average Glucose 88 mg/dL 60-110 Normal (applies to non-numeric results) [facility] ([facility]) ID Date Data Source [id number] 12/03/2019 09:14:00 AM EDT [facility]) Name Value Range Interpretation Code Description Data Lupe rce(s) Supporting Document(s) Triglycerides Level 134 mg/dL Normal (applies to non-nume nila results) [facility] ([facility]) HDL Cholesterol 27 mg/dL Below low normal [facility] ([facility]) LDL Cholesterol 86 mg/dL Normal (applies to non-numeric results) [facility] ([facility]) Cholesterol Level 140 mg/dL Normal (applies to non-numeri c results) [facility] ([facility]) Cholesterol Risk Ratio 5.185 Above high normal [facility] ([facility]) Non-HDL-C 113 mg/dL Normal (applies to non-numeric resul ts) [facility] ([facility]) ID Date Data Source [id number] 12/03/2019 09:14:00 AM EDT [facility]) Name Value Range Interpretation Code Description Data Lupe rce(s) Supporting Document(s) Glucose, Fasting 94 mg/dL 70-100 Normal (applies to non-numeric results) [facility] ([facility]) Blood Urea Nitrogen 10 mg/dL 7-18 Normal (applies to non-nume nila results) [facility] ([facility]) Creatinine For GFR 1.00 mg/dL 0.70-1.30 Normal (applies to non -numeric results) [facility] ([facility]) Potassium Serum 4.4 meq/L 3.5-5.1 Normal (applies to non-numeric results) [facility] ([facility]) Glomerular Filtration Rate Laboratory test result Normal (applies to non- numeric results) [facility]) <content>Units are mL/min/1.73 m2</content>
<content></content>
<content>Chronic Kidney Disease Staging per NKF:</content>
<content></content>
<content>Stage I & II GFR >=60 Normal to Mildly Decreased</content>
<content>Stage III GFR 30- 59 Moderately Decreased</content>
<content>Stage IV GFR 15-29 Severely Decreased</content>
<content>Stage V GFR <15 Very Little GFR Left</content>
<content>ESRD GFR <15 on DRAIN TILER</content>
<content></content> Sodium Level 139 meq/L 136-145 Normal (applies to non-numeric res ults) [facility] ([facility]) Carbon Dioxide Level 28 meq/L 21-32 Normal (applies to non-num magda results) [facility] ([facility]) Chloride Level 106 meq/L 98-107 Normal (applies to non-numeric r esults) [facility] ([facility]) Anion Gap 5 meq/L 8-16 Below low normal [facility] ( [facility]) Alt/SGPT 98 U/L 12-78 Above high normal [facility] ([facility]) Calcium Level 8.9 mg/dL 8.5-10.1 Normal (applies to non-numeric re sults) [facility] ([facility]) Ast/Sgot 45 U/L 7-37 Above high normal [facility] ([facility]) Alkaline Phosphatase 91 U/L 45-117 Normal (applies to non-num magda results) [facility] ([facility]) Total Protein 7.0 GM/DL 6.4-8.2 Normal (applies to non-numeric re sults) [facility] ([facility]) Bilirubin,Total 0.7 mg/dL 0.2-1.0 Normal (applies to non-numeric results) [facility] ([facility]) Albumin 4.0 GM/DL 3.2-5.2 Normal (applies to non-numeric resul ts) [facility] ([facility]) Albumin/Globulin Ratio 1.3 Normal (applies to non-n umeric results) [facility] ([facility]) ID Date Data Source [id number] 12/03/2019 09:14:00 AM EDT [facility] ([facility]) Name Value Range Interpretation Code Description Data Lupe rce(s) Supporting Document(s) White Blood Count 10.8 10 4.0-10.0 Above high normal [facility] ([facility]) Hemoglobin 16.2 g/dL 13.5-17.5 Normal (applies to non-numeric resul ts) [facility] ([facility]) Red Blood Count 5.49 10 4.30-6.10 Normal (applies to non-numeric results) [facility] ([facility]) Hematocrit 47.0 % 42.0-52.0 Normal (applies to non-numeric resul ts) [facility] ([facility]) Mean Corpuscular Volume 85.6 fl 80.0-96.0 Normal ( applies to non-numeric results) [facility] ([facility]) Mean Corpuscular Hemoglobin 29.5 pg 27.0-33.0 Norm al (applies to non-numeric results) [facility] ([facility]) Mean Corpuscular HGB Conc 34.5 g/dL 32.0-36.5 Normal (applies to non-numeric results) [facility] ([facility]) Red Cell Distribution Width 12.4 % 11.5-14.5 Norm al (applies to non-numeric results) [facility] ([facility]) Neutrophils % 56.6 % 36.0-66.0 Normal (applies to non-numeric re sults) [facility] ([facility]) Platelet Count, Automated 142 10 150-450 Below low normal [facility] ([facility]) Lymph % 33.5 % 24.0-44.0 Normal (applies to non-numeric resul ts) [facility] ([facility]) Eos % 1.9 % 0.0-3.0 Normal (applies to non-numeric resul ts) [facility] ([facility]) Baso % 0.7 % 0.0-1.0 Normal (applies to non-numeric resul ts) [facility] ([facility]) Bremer % 7.0 % 0.0-5.0 Above high normal [facility] ([facility]) Immature Granulocyte % 0.3 % 0-3.0 Normal (applies to non-n umeric results) [facility] ([facility]) Nucleated Red Blood Cell % 0.0 % 0-0 Normal (applies to n on-numeric results) [facility] ([facility]) Neutrophils # 6.1 10 1.5-8.5 Normal (applies to non-numeric re sults) [facility] ([facility]) Eos # 0.2 10 0.0-0.5 Normal (applies to non-numeric resul ts) [facility] ([facility]) Lymph # 3.6 10 1.5-5.0 Normal (applies to non-numeric resul ts) [facility] ([facility]) Bremer # 0.8 10 0.0-0.8 Normal (applies to non-numeric resul ts) [facility] ([facility]) Baso # 0.1 10 0.0-0.2 Normal (applies to non-numeric resul ts) [facility] ([facility]) Procedure Vital Signs ID Date Data Source UNK Name Value Range Interpretation Code Description Data Source(s) Body mass index (BMI) [Ratio] 27.4 kg/m2 27.4 k g/m2 [facility] ([facility]) Body height 68 [in_i] 68 [in_i] [facility] ([facility]) 5'8" Body weight 180.00 [lb_av] 180.00 [lb_av] [facility] T ([facility]) Body temperature 98.3 [degF] 98.3 [degF] [facility] ([facility]) Oxygen saturation in Arterial blood by Pulse oximetry 97 % 97 % [facility] ([facility]) Heart rate 88 /min 88 /min [facility] ([facility]) Diastolic blood pressure 80 mm[Hg] 80 mm[Hg] [facility] ([facility], [facility]) Systolic blood pressure 120 mm[Hg] 120 mm[Hg] M [facility] ([facility], [facility]) Mcallister body weight 148 [lb_av] 148 [lb_av] [facility] Oxygen saturation in Arterial blood by Pulse oximetry 97 % 97 % [facility] ([facility]) Body temperature 96.7 [degF] 96.7 [degF] [facility] ([facility]) Respiratory rate 18 /min 18 /min [facility] ( [facility]) Heart rate 57 /min 57 /min [facility] ([facility]) Body mass index (BMI) [Ratio] 28.9 kg/m2 28.9 k g/m2 [facility] ([facility]) Body weight 184.25 [lb_av] 184.25 [lb_av] [facility] T ([facility]) Body height 67 [in_i] 67 [in_i] [facility] ([facility]) 5'7" Diastolic blood pressure 80 mm[Hg] 80 mm[Hg] [facility] ([facility]) Systolic blood pressure 120 mm[Hg] 120 mm[Hg] [facility] ([facility]) Body temperature 96.8 [degF] 96.8 [degF] [facility] ([facility], [facility]) Oxygen saturation in Arterial blood by Pulse oximetry 97 % 97 % [facility] ([facility], [facility]) Respiratory rate 16 /min 16 /min [facility] ( [facility], [facility]) Heart rate 50 /min 50 /min [facility] ([facility]) Diastolic blood pressure 84 mm[Hg] 84 mm[Hg] [facility] ([facility], [facility]) Systolic blood pressure 116 mm[Hg] 116 mm[Hg] M [facility] ([facility], [facility]) Body mass index (BMI) [Ratio] 26.6 kg/m2 26.6 k g/m2 [facility] ([facility]) Body height 69 [in_i] 69 [in_i] [facility] ([facility]) 5'9" Body weight 180.00 [lb_av] 180.00 [lb_av] ABDIAS Gonzales ([facility], [facility])
[2020-03-26 12:02] LABS: BASO % 0.4 % (0.0-1.0); EOS % 0.5 % (0.0-3.0); HEMATOCRIT 47.4 % (42.0-52.0); HEMOGLOBIN 16.2 g/dl (13.5-17.5); LYMPH # 1.7 10^3/uL (1.5-5.0); LYMPH % 20.6 % (24.0-44.0); MEAN CORPUSCULAR HEMOGLOBIN 29.2 pg (27.0-33.0); MEAN CORPUSCULAR HGB CONC 34.2 g/dl (32.0-36.5); MEAN CORPUSCULAR VOLUME 85.6 fl (80.0-96.0); MONO # 0.7 10^3/uL (0.0-0.8); MONO % 8.1 % (0.0-5.0); NEUTROPHILS # 5.8 10^3/uL (1.5-8.5); PLATELET COUNT, AUTOMATED 172 10^3/uL (150-450); RED BLOOD COUNT 5.54 10^6/uL (4.30-6.10); WHITE BLOOD COUNT 8.3 10^3/uL (4.0-10.0)
--- NOTE | 2020-03-26 12:05 | REP ---
INDICATION: History Kidney stones/ abdominal pain. COMPARISON: 07/01/2005 a contrast-enhanced exam TECHNIQUE: Noncontrast enhanced stone protocol CT FINDINGS: The lung bases are clear. Limited evaluation of the solid intra-organs and gallbladder show them to be within normal limits. Limited evaluation of the pancreas, adrenal glands, and right kidney show them to be within normal limits. There is mild left renal enlargement and perirenal stranding seen in conjunction with mild left-sided hydronephrosis and hydroureter. Within the distal left ureter just proximal to the ureterovesical junction there is a 6 mm size calcification. Limited evaluation of the bowel loops and the mesenteries show no gross abnormalities. There is no free fluid or free air. There is no mass or adenopathy. Bone window technique throughout the examination shows the osseous structures to be within normal limits. IMPRESSION: Left-sided renal and renal collecting system findings as described above. <Electronically signed by Quincy Hudson > 03/26/20 [id number]
[2020-03-26] MEDS ORDERED: KETO10TAB PO (13:42)
[2020-03-26 14:15] VITALS: BP 139/80
== END 2020-03-26 14:17 | disposition home or self-care (01) ==
LOC: M ED 10:28
DX: N20.0 Calculus of kidney (principal); N13.30 Unspecified hydronephrosis; N13.4 Hydroureter
CPT/HCPCS: 74176; 80047; 81001; 85025; 96361; 96374; 99284; J1885

== ENCOUNTER → 2020-03-28 | Outpatient (REF) | payer BC ==
[~2020-03-28] MED LIST: KETO10TAB PO
== END ==
LOC: M SMT 16:45
PROVIDERS: ATTEND Urology
DX: N20.1 Calculus of ureter (principal)

== ENCOUNTER → 2020-03-28 | Outpatient (CLI) | payer BC ==
--- NOTE | 2020-03-28 13:26 | REPPI ---
INDICATION: N20.1 URETERAL CALCULUS. COMPARISON: Comparison is made with cross country and track and field coach view for CT study 26 March 2020.. TECHNIQUE: KUB. Two views presented. FINDINGS: There is air and stool in a nondistended colon. Psoas margins and flank stripes appear intact. There are few loops of air-filled small bowel in the right mid abdomen. There is a triangular faintly calcific density just above the level of the iliac spines in the left true pelvis which could represent the left distal ureteral calculus observed on CT. No other urinary tract calculus is apparent. No mass or organomegaly seen. IMPRESSION: Possible left distal ureteral stone. There is a right pelvic phlebolith. No other urinary tract calculus seen. <Electronically signed by Abdiel Sultana > 03/28/20 [id number]
== END ==
LOC: M PLAIMG 10:48
PROVIDERS: ATTEND Urology
DX: N20.1 Calculus of ureter (principal)

== ENCOUNTER → 2020-03-28 | Outpatient (CLI) | payer BC | LOC: M LABSMTC 12:28 | PROVIDERS: ATTEND Anesthesiology | DX: Z01.812 Encounter for preprocedural laboratory examination (principal); Z20.822 Contact with and (suspected) exposure to COVID-19 ==

== ENCOUNTER 2020-03-31 07:14 | Day surgery (SDC) | payer BC ==
[~2020-03-31] VITALS: Ht 172.7 cm; Wt 85.3 kg
[~2020-03-31 07:14] MED LIST changes: +LR 1,000 ML IV ONE
--- OUTSIDE RECORDS SUMMARY | 2020-03-31 07:18 | CCD ---
Author Author [facility] Organization [facility] Address Unknown Phone Unavailable Care Team Providers Care Hand Ornament Maker Name Role Phone Marco Womack Unavailable PROBLEMS No Information ALLERGIES No Known Allergies ENCOUNTERS from 1980 to 2020-03-29 Encounter Location Date Provider Diagnosis [facility] [address] [place] [address] Feb Marco Womack IMMUNIZATIONS No Information SOCIAL HISTORY Tobacco Use: Social History Observation Description Date Details (start date - stop date) Never Smoker Sex Assigned At : Social History Observation Description Sex Assigned At Unknown Language: Question Answer Notes Languages spoken: Portuguese Latter-Day: Question Answer Notes Latter-Day No jew beliefs that would impact health care. Alcohol Screening: Question Answer Notes Did you have a drink containing alcohol in the past year? No Points 0 Interpretation Negative Tobacco Use: Question Answer Notes Are you a: never smoker REASON FOR REFERRAL No Information VITAL SIGNS No information MEDICATIONS Medication SIG (Take, Route, Frequency, Duration) Notes Start Da te End Date Status Ketorolac Tromethamine 10 MG 1 tablet with food or mil k as needed Orally every 6 hrs for 5 day(s) Active PROCEDURES No Information RESULTS No Results REASON FOR VISIT surgery options MEDICAL (GENERAL) HISTORY Type Description Date Medical History kidney stones Surgical History subtailor joint fusion Surgical History hernia repair Surgical History right eardrum repair Goals Section No Information Health Concerns No Information MEDICAL EQUIPMENT No Information MENTAL STATUS No Information FUNCTIONAL STATUS No Information ASSESSMENTS No Information PLAN OF TREATMENT Next Appt Details Provider Name:Maximo Emanuel Kathi, 2020-03-31 2 09:30:00 AM, [address] [place], [address], Insurance Providers Payer Name Payer Address Payer Phone Insured Name Patient Relati onship to Insured Coverage Start Date Coverage End Date BCBS JOAQUIM HAGEN [facility] [id number] [facility] [place] [id number] SHAYLEE AGUIRRE self
--- OUTSIDE RECORDS SUMMARY | 2020-03-31 07:18 | CCD ---
Author Author [facility] Organization [facility] Address Unknown Phone Unavailable Care Team Providers Care Pump Tender Name Role Phone Verbeck Jr, Guillermo Srikanth PA Unavailable Unavailable Verbeck Jr, Jefferson Srikanth PA Unavailable Unavailable Verbeck Jr, Jefferson Srikanth PA Unavailable Unavailable Verbeck Jr, Jefferson Srikanth PA Unavailable Unavailable Verbeck Jr, Jefferson Srikanth PA Unavailable Unavailable Verbeck Jr, Guillermo Srikanth PA Unavailable Unavailable Verbeck Jr, Jefferson Srikanth PA Unavailable Unavailable Verbeck Jr, Jefferson Srikanth PA Unavailable Unavailable Verbeck Jr, Guillermo Srikanth PA Unavailable Unavailable Verbeck Jr, Guillermo Srikanth PA Unavailable Unavailable Verbeck Jr, Guillermo Srikanth PA Unavailable Unavailable Verbeck Jr, Guillermo Srikanth PA Unavailable Unavailable Verbeck Jr, Jefferson Srikanth PA Unavailable Unavailable Verbeck Jr, Guillermo Srikanth PA Unavailable Unavailable Verbeck Jr, Jefferson Srikanth PA Unavailable Unavailable Verbeck Jr, Jefferson Srikanth PA Unavailable Unavailable Verbeck Jr, Jefferson Srikanth PA Unavailable Unavailable Verbeck Jr, Jefferson Srikanth PA Unavailable Unavailable Verbeck Jr, Jefferson Srikanth PA Unavailable Unavailable Verbeck Jr, Jefferson Srikanth PA Unavailable Unavailable Verbeck Jr, Guillermo Srikanth PA Unavailable Unavailable Verbeck Jr, Guillermo Srikanth PA Unavailable Unavailable Verbeck Jr, Jefferson Srikanth PA Unavailable Unavailable Verbeck Jr, Jefferson Srikanth PA Unavailable Unavailable Verbeck Jr, Jefferson Srikanth PA Unavailable Unavailable Verbeck Jr, Jefferson Srikanth PA Unavailable Unavailable Verbeck Jr, Guillermo Srikanth PA Unavailable Unavailable Verbeck Jr, Guillermo Srikanth PA Unavailable Unavailable Verbeck Jr, Guillermo Srikanth PA Unavailable Unavailable Verbeck Jr, Jefferson Srikanth PA Unavailable Unavailable Verbeck Jr, Guillermo Srikanth PA Unavailable Unavailable Verbeck Jr, Jefferson Srikanth PA Unavailable Unavailable Verbeck Jr, Jefferson Srikanth PA Unavailable Unavailable Hutchinson, Vaishnavi Lilli [...] is protected by Article 27-F of the [facility] Public Health law. If you continue you may have access to information: Regarding HIV / AIDS; Provided by facilities licensed or operated by the [facility] Office of Mental Health; or Provided by the [facility] Office for People With Developmental Disabilities. If such information is present, then the following [facility] mandated warning applies: This information has been [...] law may result in a fine or senior care sentence or both. A general authorization for the release of medical or other information is NOT sufficient authorization for further disc losure. Family History Family Member Name Family Member Gender Family Member Status Date o f Status Description Data Source(s) Unknown Unknown Problem [facility] ([facility]) Unknown Unknown Problem [facility] ([facility], ) Unknown Unknown Problem [facility] ([facility] ) Unknown Unknown Problem [facility] ([facility] Encounters Encounter Providers Location Date Indications Data Source(s ) Unknown [id number] [facility] [facility], [facility] [address] 03/28/2020 12:00:00 AM EST eCW1 ([facility]) Outpatient Attender: LAWRENCE rodriguez 12/03/2019 08:30:00 AM EDT [facility] Out[facility] Attender: Lawrence VALDOVINOS Family [facility] 08/20/2019 10:00:00 AM EDT MEDENT ([facility]) Outpatient Referrer: Sirkanth Rogers Jr 02/18/2019 07:46:00 PM EST [facility] Outpatient Attender: Lilli rodriguez 02/04/2019 10:00:00 AM EST MED[facility] ([facility]) Medications Medication Brand Name Start Date Product Form Dose Route Admi nistrative Instructions Pharmacy Instructions Status Indications Reaction Description Data Source(s) 10 mg 03/26/2020 12:00:00 AM EST tablet 20 TAKE ONE TABLET BY MOUTH EVERY 6 HOURS NEEDED FOR PAIN TAKE ONE TABLET BY MOUTH EVERY 6 HOURS A S NEEDED FOR PAIN SOLD: 03/26/2020 [facility] 1 gram 12/27/2019 12:00:00 AM EDT tablet [...] A WEEK SOLD: 12/27/2019 [facility] Ergocalciferol [id number] UNT Oral Capsule Vitamin D (Ergocalcife rol) 12/05/2019 12:00:00 AM EDT active M EDENT ([facility]) valacyclovir 1000 MG Oral Tablet Valacyclovir HCL 08/20/2019 12:00: 00 AM EDT ORAL active MEDENT ([facility]) Insurance Providers Payer name Policy type / Coverage type Policy ID Covered green party ID Covered green party's relationship to peraza Policy [place] Plan Information [employer]LLUS BC-BS PPO [id number] SP [id number] [employer] BC-BS PPO [id number] SP [id number] [place] PPO 302/307 [id number] SP [id number] [place] PPO 302/307 [id number] SP [id number] [employer] BCBS B [id number] S TNY [id number] EXCELLUS H [id number] Self [id number] BCBS/Blue Card Commercial [id number] Self T [id number] [employer] BCBS Medigap Part B Self Excell[employer] BCBS Health Maintenance Organization (HMO) Self BCBS [place] PPO 302/307 [id number] SP [id number] Blue Cross Blue Shield P [id number] SELF [id number] EXCELLUS H [id number] Self [id number] BC/BS Of [place] Commercial Self BCBS OF [place] BC [id number] S TNY [id number] BCBS [place] BC [id number] S TNY [id number] Results ID Date Data Source [id number] 03/28/2020 12:00:00 PM EST [facility] Name Value Range Interpretation Code Description Data Lupe rce(s) Supporting Document(s) SARS coronavirus 2 RNA [Presence] in Res piratory specimen by TOM with probe detection NEGATIVE [facility] This lab was ordered by [facility] a nd reported by [facility]. ID Date Data Source [id number] 12/16/2019 12:09:00 PM EDT MEDENT ([facility]) Name Value Range Interpretation Code Description Data Lupe rce(s) Supporting Document(s) White Blood Count 7.4 10 4.0-10.0 Normal (applies to non-numeri c results) [facility] Red Blood Count 4.96 10 4.30-6.10 Normal (applies to non-numeric results) [facility] ([facility]) Hemoglobin 14.7 g/dL 13.5-17.5 Normal (applies to non-numeric resul ts) [facility] ([facility]) Hematocrit 43.1 % 42.0-52.0 Normal (applies to non-numeric resul ts) [facility] ([facility]) Mean Corpuscular Volume 86.9 fl 80.0-96.0 Normal ( applies to non-numeric results) [facility] ([facility]) Red Cell Distribution Width 13.1 % 11.5-14.5 Norm al (applies to non-numeric results) [facility] ([facility]) Mean Corpuscular HGB Conc 34.1 g/dL 32.0-36.5 Normal (applies to non-numeric results) [facility] ([facility]) Mean Corpuscular Hemoglobin 29.6 pg 27.0-33.0 Norm al (applies to non-numeric results) [facility]) Lymph % 38.6 % 24.0-44.0 Normal (applies to non-numeric resul ts) [facility] ([facility]) Neutrophils % 45.5 % 36.0-66.0 Normal (applies to non-numeric re sults) MED[facility] ([facility]) Platelet Count, Automated 177 10 150-450 Normal (applies to non-numeric results) [facility] ([facility]) Baso % 0.7 % 0.0-1.0 Normal (applies to non-numeric resul ts) [facility] ([facility]) Shelby % 10.9 % 0.0-5.0 Above high normal MED[facility] ([facility]) Eos % 4.0 % 0.0-3.0 Above high normal MED[facility] ([facility]) Immature Granulocyte % 0.3 % 0-3.0 Normal (applies to non-n umeric results) [facility] ([facility]) Lymph # 2.9 10 1.5-5.0 Normal (applies to non-numeric resul ts) [facility] ([facility]) Neutrophils # 3.4 10 1.5-8.5 Normal (applies to non-numeric re sults) [facility] ([facility]) Nucleated Red Blood Cell % 0.0 % 0-0 Normal (applies to n on-numeric results) [facility] ([facility]) Baso # 0.1 10 0.0-0.2 Normal (applies to non-numeric resul ts) [facility] ([facility]) Eos # 0.3 10 0.0-0.5 Normal (applies to non-numeric resul ts) [facility] ([facility]) Shelby # 0.8 10 0.0-0.8 Normal (applies to non-numeric resul ts) [facility] ([facility]) ID Date Data Source [id number] 12/16/2019 12:09:00 PM EDT [facility] Name Value Range Interpretation Code Description Data Lupe rce(s) Supporting Document(s) Babesia microti DNA [Presence] in Blood by Probe and target amplification method Laboratory test result Normal (applies to non-numeric results) [facility] ([facility]) No Babesia DNA detected. This test was developed and its performance characteristics determined by [employer]. It has not been cleared or approved by the Food and Drug Administration. The FDA has determined that such clearance or approval is not necessary. Performed at: - [facility] [address] [id number] Data Management: Pina Kearney MD, Phone: [phone] Performed at: - [facility] [id number] Data Management: Jo Ann Dumont MD, Phone: [phone] ID Date Data Source [id number] 12/16/2019 12:09:00 PM EDT MED[facility] ([facility]) Name Value Range Interpretation Code Description Data Lupe rce(s) Supporting Document(s) Ebv Viral Capsid Ag IgM Laboratory test result 0.0-35.9 Above high normal [facility] ([facility]) <content>Negative <36.0</content>
<content>Equivocal 36.0 - 43.9</content>
<content>Positive >43.9</content>
<content></content> Ebv AB To Nuclear Antigen 396.0 U/mL 0.0-17.9 Above high normal [facility] ([facility]) <content>Negative <18.0</content>
<content>Equivocal 18.0 - 21.9</content>
<content>Positive >21.9</content>
<content></content> Ebv Viral Capsid Ag IgG 186.0 U/mL 0.0-17.9 Above high normal [facility] ([facility]) <content>Negative <18.0</content>
<content>Equivocal 18.0 - 21.9</content>
<content>Positive >21.9</content>
<content></content> Ebv Interpretation Laboratory test result Normal (applies to non-numeric results) [facility] ([facility]) . EBV Interpretation Chart [place]: Antibody [...] antibodies to EBNA. ID Date Data Source [id number] 12/16/2019 12:09:00 PM EDT [facility]) Name Value Range Interpretation Code Description Data Lupe rce(s) Supporting Document(s) Laboratory test finding (navigational concept) Laboratory test r esult Normal (applies to non-numeric results) [facility]) No Anaplasma phagocytophilum DNA detecte d. A. phagocytophilum has been characterized as the causative agent of Human Granulocytic Ehrlichiosis (HGE). . This test was developed and its performance characteristics determined by [employer]. It has not been cleared or approved by the Food and Drug Administration. Laboratory test finding (navigational concept) Laboratory test r esult Normal (applies to non-numeric results) [facility] ([facility]) No Ehrlichia chaffeensis DNA detected. E. chaffeensis has been characterized as the causative agent of Human Monocytic Ehrlichiosis (HME). . This test was developed and its performance characteristics determined by [employer]. It has not been cleared or approved by the Food and Drug Administration. ID Date Data Source [id number] 12/16/2019 12:09:00 PM EDT [facility]) Name Value Range Interpretation Code Description Data Lupe rce(s) Supporting Document(s) Lyme Disease IgM Ab Quantitati Laboratory test result 0.00-0.79 Normal (applies to non-numeric results) [facility]) <content>Negative <0.80</content >
<content>Equivocal 0.80 - 1.19</content>
<content>Positive >1.19</content>
<content>.</content>
<content>IgM levels may peak at 3-6 weeks post infection, then</content>
<content>gradually decline.</content>
<content></content> Lyme Disease IgG/IgM Antibodie Laboratory test result 0.00-0.90 Normal (applies to non-numeric results) [facility]) <content>Negative <0.91</content >
<content>Equivocal 0.91 - 1.09</content>
<content>Positive >1.09</content>
<content></content> ID Date Data Source [id number] 12/03/2019 09:14:00 AM EDT [facility] ([facility]) Name Value Range Interpretation Code Description Data Lupe rce(s) Supporting Document(s) Thyrotropin [Units/volume] in Serum or Plasma 0.971 uIU/ML 0. 358-3.740 Normal (applies to non-numeric results) [facility]) Calcidiol [Mass/volume] in Serum or Plasma 17.4 ng/mL 30.0- 100.0 Below low normal [facility] ([facility]) Thyroxine (T4) free [Mass/volume] in Serum or Plasma 1.04 ng/dL 0.76-1.46 Normal (applies to non-numeric results) [facility]) ID Date Data Source [id number] 12/03/2019 09:14:00 AM EDT [facility]) Name Value Range Interpretation Code Description Data Lupe rce(s) Supporting Document(s) Hemoglobin A1c 4.7 % Normal (applies to non-numeric r esults) [facility]) <content>REFERENCE RANGES:</content><br/ ><content></content>
<content><=5.6% NORMAL</content>
<content>5.7-6.4% SUGGESTS IMPAIRED GLUCOSE METABOLISM/PREDIABETIC</content>
<content>>= 6.5% ABNORMAL</content>
<content></content> Estimated Average Glucose 88 mg/dL 60-110 Normal (applies to non-numeric results) [facility] ([facility]) ID Date Data Source [id number] 12/03/2019 09:14:00 AM EDT [facility] ([facility]) Name Value Range Interpretation Code Description Data Lupe rce(s) Supporting Document(s) Triglycerides Level 134 mg/dL Normal (applies to non-nume nila results) [facility] ([facility]) HDL Cholesterol 27 mg/dL Below low normal [facility] ([facility]) LDL Cholesterol 86 mg/dL Normal (applies to non-numeric results) [facility] ([facility]) Cholesterol Level 140 mg/dL Normal (applies to non-numeri c results) [facility] ([facility]) Cholesterol Risk Ratio 5.185 Above high normal [facility] ([facility]) Non-HDL-C 113 mg/dL Normal (applies to non-numeric resul ts) [facility] ([facility]) ID Date Data Source [id number] 12/03/2019 09:14:00 AM EDT [facility] ([facility]) Name Value Range Interpretation Code Description Data Lupe rce(s) Supporting Document(s) Glucose, Fasting 94 mg/dL 70-100 Normal (applies to non-numeric results) [facility] ([facility]) Blood Urea Nitrogen 10 mg/dL 7-18 Normal (applies to non-nume nila results) [facility] ([facility]) Creatinine For GFR 1.00 mg/dL 0.70-1.30 Normal (applies to non -numeric results) [facility] ([facility]) Potassium Serum 4.4 meq/L 3.5-5.1 Normal (applies to non-numeric results) [facility] ([facility]) Glomerular Filtration Rate Laboratory test result Normal (applies to non- numeric results) [facility] ([facility]) <content>Units are mL/min/1.73 m2</content>
<content></content>
<content>Chronic Kidney Disease Staging per NKF:</content>
<content></content>
<content>Stage I & II GFR >=60 Normal to Mildly Decreased</content>
<content>Stage III GFR 30- 59 Moderately Decreased</content>
<content>Stage IV GFR 15-29 Severely Decreased</content>
<content>Stage V GFR <15 Very Little GFR Left</content>
<content>ESRD GFR <15 on HEAT TREATER HEAD</content>
<content></content> Sodium Level 139 meq/L 136-145 Normal (applies to non-numeric res ults) [facility] ([facility]) Carbon Dioxide Level 28 meq/L 21-32 Normal (applies to non-num magda results) [facility] ([facility]) Chloride Level 106 meq/L 98-107 Normal (applies to non-numeric r esults) [facility] ([facility]) Anion Gap 5 meq/L 8-16 Below low normal [facility] ( [facility]) Alt/SGPT 98 U/L 12-78 Above high normal [facility] ([facility]) Calcium Level 8.9 mg/dL 8.5-10.1 Normal (applies to non-numeric re sults) [facility] ([facility]) Ast/Sgot 45 U/L 7-37 Above high normal [facility] ([facility]) Alkaline Phosphatase 91 U/L 45-117 Normal (applies to non-num magda results) [facility] ([facility]) Total Protein 7.0 GM/DL 6.4-8.2 Normal (applies to non-numeric re sults) [facility] ([facility]) Bilirubin,Total 0.7 mg/dL 0.2-1.0 Normal (applies to non-numeric results) [facility]) Albumin 4.0 GM/DL 3.2-5.2 Normal (applies to non-numeric resul ts) [facility] ([facility]) Albumin/Globulin Ratio 1.3 Normal (applies to non-n umeric results) [facility] ([facility]) ID Date Data Source [id number] 12/03/2019 09:14:00 AM EDT [facility] ([facility]) Name Value Range Interpretation Code Description Data Lupe rce(s) Supporting Document(s) White Blood Count 10.8 10 4.0-10.0 Above high normal [facility] ([facility]) Hemoglobin 16.2 g/dL 13.5-17.5 Normal (applies to non-numeric resul ts) [facility] ([facility]) Red Blood Count 5.49 10 4.30-6.10 Normal (applies to non-numeric results) [facility] ([facility]) Hematocrit 47.0 % 42.0-52.0 Normal (applies to non-numeric resul ts) [facility] ([facility]) Mean Corpuscular Volume 85.6 fl 80.0-96.0 Normal ( applies to non-numeric results) [facility] ([facility]) Mean Corpuscular Hemoglobin 29.5 pg 27.0-33.0 Norm al (applies to non-numeric results) [facility] ([facility]) Mean Corpuscular HGB Conc 34.5 g/dL 32.0-36.5 Normal (applies to non-numeric results) [facility] ([facility]) Red Cell Distribution Width 12.4 % 11.5-14.5 Norm al (applies to non-numeric results) [facility] ([facility]) Neutrophils % 56.6 % 36.0-66.0 Normal (applies to non-numeric re sults) [facility] ([facility]) Platelet Count, Automated 142 10 150-450 Below low normal [facility] ([facility]) Lymph % 33.5 % 24.0-44.0 Normal (applies to non-numeric resul ts) [facility] ([facility]) Eos % 1.9 % 0.0-3.0 Normal (applies to non-numeric resul ts) [facility] ([facility]) Baso % 0.7 % 0.0-1.0 Normal (applies to non-numeric resul ts) [facility] ([facility]) [place] % 7.0 % 0.0-5.0 Above high normal [facility] ([facility]) Immature Granulocyte % 0.3 % 0-3.0 Normal (applies to non-n umeric results) [facility] ([facility]) Nucleated Red Blood Cell % 0.0 % 0-0 Normal (applies to n on-numeric results) [facility] ([facility]) Neutrophils # 6.1 10 1.5-8.5 Normal (applies to non-numeric re sults) [facility] ([facility]) Eos # 0.2 10 0.0-0.5 Normal (applies to non-numeric resul ts) [facility] ([facility]) Lymph # 3.6 10 1.5-5.0 Normal (applies to non-numeric resul ts) [facility] ([facility]) [place] # 0.8 10 0.0-0.8 Normal (applies to non-numeric resul ts) [facility] ([facility]) Baso # 0.1 10 0.0-0.2 Normal (applies to non-numeric resul ts) [facility] ([facility]) Procedure Social History Code Duration Value Status Description Data Source(s ) Smoking 03/28/2020 12:00:00 AM EST Never Smoker completed Never S tiana eCW1 ([facility]) Vital Signs ID Date Data Source UNK Name Value Range Interpretation Code Description Data Source(s) Body mass index (BMI) [Ratio] 27.4 kg/m2 27.4 k g/m2 [facility] ([facility]) Body height 68 [in_i] 68 [in_i] [facility] ([facility]) 5'8" Body weight 180.00 [lb_av] 180.00 [lb_av] MEDEN T ([facility], [facility]) Body temperature 98.3 [degF] 98.3 [degF] [facility] ([facility], [facility]) Oxygen saturation in Arterial blood by Pulse oximetry 97 % 97 % [facility] ([facility], [facility]) Heart rate 88 /min 88 /min [facility] ([facility], [facility]) Diastolic blood pressure 80 mm[Hg] 80 mm[Hg] [facility] ([facility], [facility]) Systolic blood pressure 120 mm[Hg] 120 mm[Hg] M EDENT ([facility], [facility]) Campbell body weight 148 [lb_av] 148 [lb_av] MEDEN T ([facility]) Oxygen saturation in Arterial blood by Pulse oximetry 97 % 97 % [facility] ([facility]) Body temperature 96.7 [degF] 96.7 [degF] [facility] Respiratory rate 18 /min 18 /min [facility] ( [facility]) Heart rate 57 /min 57 /min [facility] ([facility]) Body mass index (BMI) [Ratio] 28.9 kg/m2 28.9 k g/m2 [facility] ([facility]) Body weight 184.25 [lb_av] 184.25 [lb_av] [facility] T ([facility]) Body height 67 [in_i] 67 [in_i] [facility] ([facility]) 5'7" Diastolic blood pressure 80 mm[Hg] 80 mm[Hg] [facility] ([facility]) Systolic blood pressure 120 mm[Hg] 120 mm[Hg] [facility] Body temperature 96.8 [degF] 96.8 [degF] [facility] ([facility], [facility]) Oxygen saturation in Arterial blood by Pulse oximetry 97 % 97 % [facility] ([facility], [facility]) Respiratory rate 16 /min 16 /min [facility] ( [facility], [facility]) Heart rate 50 /min 50 /min [facility] ([facility]) Diastolic blood pressure 84 mm[Hg] 84 mm[Hg] [facility] ([facility], [facility]) Systolic blood pressure 116 mm[Hg] 116 mm[Hg] [facility]) Body mass index (BMI) [Ratio] 26.6 kg/m2 26.6 k g/m2 [facility] ([facility], [facility]) Body height 69 [in_i] 69 [in_i] [facility] ([facility], [facility]) 5'9" Body weight 180.00 [lb_av] 180.00 [lb_av] MED[facility] T ([facility], [facility])
[2020-03-31] MEDS ORDERED: LIDOCAINE 2% 100MG/5ML SDV (FOR ANES.) As Ordered ONE (07:57)
[2020-03-31] MEDS ORDERED: propofoL 200 MG/20 ML VIAL As Ordered ONE (07:57)
[2020-03-31] MEDS ORDERED: MIDAZOLAM INJ 2MG/2ML VIAL (J2250 PER 1MG) As Ordered ONE (07:58)
[2020-03-31] MEDS ORDERED: fentaNYL 100 MCG/2 ML INJECTION (J3010) As Ordered ONE (07:59)
[2020-03-31] MEDS ORDERED: ceFAZolin 2 GM/D5W 50 ML IV BAG (J0690 PER 500MG) As Ordered ONE (09:03)
[2020-03-31] MEDS ORDERED: CONRAY-60 60% 50ML VIAL (Q9961) As Ordered ONE (09:07)
[2020-03-31] MEDS ORDERED: ceFAZolin SOD 2 GM in IV 1 EA IV ONE (09:13)
[2020-03-31] MEDS ORDERED: dexameTHASONE 4 MG/ML 1ML VIAL (J1100 PER 1MG) As Ordered ONE (09:26)
[2020-03-31] MEDS ORDERED: ONDANSETRON 4MG/2ML VIAL As Ordered ONE (09:33)
[2020-03-31] MEDS ORDERED: ACETAMINOPHEN 1000MG 100ML IV BTL (OFIRMEV) (J0131 PER 10MG) As Ordered ONE (09:36)
--- NOTE | 2020-03-31 10:07 | REP ---
INDICATION: LEFT URETHRAL STENT PLACEMENT. COMPARISON: None. TECHNIQUE: Intraoperative fluoroscopic imaging using C-arm technique. FINDINGS: Satisfactory left ureteral stent placement noted. Total fluoroscopic time 12 seconds. IMPRESSION: Left ureteral stent placement. <Electronically signed by Fer Coffey > 03/31/20 [id number]
[2020-03-31] MEDS ORDERED: ONDANSETRON 4MG/2ML VIAL IV PRN (10:15)
[2020-03-31] MEDS ORDERED: fentaNYL 100 MCG/2 ML INJECTION (J3010) IV PRN (10:15)
[2020-03-31] MEDS ORDERED: oxyCODONE 5MG TAB PO PRN (10:15)
[2020-03-31] MEDS ORDERED: LR 1,000 ML IV SCH (10:15)
[2020-03-31] MEDS ORDERED: PERCOCET 5MG/325MG TAB PO PRN (10:30)
[2020-03-31 11:45] VITALS: BP 153/92
--- NOTE | 2020-03-31 13:21 | RO ---
"OPERATIVE NOTE DATE OF OPERATION: 03/31/2020 PREOPERATIVE DIAGNOSIS: Left ureteral stone. POSTOPERATIVE DIAGNOSIS: Left ureteral stone. PROCEDURE: Cystoscopy, left ureteroscopy with laser lithotripsy and basket extraction of stones, left retrograde pyelogram with intraoperative interpreted images, left ureteral stent placement. SURGEON: Luis Flores MD DRUG SAFETY DATA MANAGEMENT SPECIALIST: None. ANESTHESIA: General. OPERATIVE INDICATIONS: This is a 39-year-old male who was found to have obstructing 5 to 6 mm distal left ureteral stone on recent CT scan. He was brought to the operating room today for treatment. DESCRIPTION OF PROCEDURE: |The patient was brought to the operating room and general anesthesia was induced. Prophylactic antibiotics were infused. He was placed in a dorsal lithotomy position, prepped and draped in the usual sterile fashion. A rigid cystoscope was inserted in the urethral meatus and advanced into the bladder. A guidewire was advanced up the left collecting system. I went up the left collecting system with a short semi-rigid ureteroscope and of note, the left ureteral orifice appeared to be moderately inflamed and stenotic. I was able to get the ureteroscope in. Within the distal ureter, there was an impacted stone. The stone was fragmented into smaller pieces using a 272 micron laser fiber and then all the fragments were removed using a basket. I then the examined the more proximal ureter and no additional stone fragments were seen. A retrograde pyelogram was then performed and notable for mild left hydroureteronephrosis with no extravasation. I then withdrew the ureteroscope and once again no distal stone fragments were seen. I then utilized the Guidewire to advance a 6 Macedonian x 22-32 cm JJ ureteral stent up into the left collecting system. The wire was removed and there were adequate curls of the stent in the left renal pelvis and in the bladder. The bladder was emptied of all fluids and this marked the conclusion of the procedure. The patient was taken out of dorsal lithotomy position, awakened from anesthesia, and transported to the recovery room in stable condition. ESTIMATED BLOOD LOSS: 5 mL COMPLICATIONS: None. SPECIMENS: Kidney stone fragments. PLAN: The patient will follow up in Urology Clinic in one to two weeks for stent removal. [facility]PITALSherry"
== END 2020-03-31 11:45 | disposition home or self-care (01) ==
LOC: M SDC 07:14
PROVIDERS: ATTEND Urology
DX: N20.1 Calculus of ureter (principal)
CPT/HCPCS: 52356; 74420; 82365; 88300; C1769; C2617; J0131; J0690; J1100; J2250; J2405; J3010; Q9961

== ENCOUNTER → 2021-01-05 | Outpatient (CLI) | payer BC ==
[~2021-01-05] MED LIST changes: -LR 1,000 ML IV ONE
--- NOTE | 2021-01-05 20:41 | REPVR ---
PROCEDURE INFORMATION: Exam: MR Head Without Contrast Exam date and time: 01/05/2021 6:45 PM Age: 40 years old Clinical indication: Parosmia TECHNIQUE: Imaging protocol: MR of the head without contrast. COMPARISON: No relevant prior studies available. FINDINGS: Brain: No intracranial hemorrhage or extra-axial fluid collection. No evidence of mass effect or midline shift. No white matter abnormalities. No restricted diffusion to suggest acute infarct. Cerebral ventricles: Ventricles, cisterns, and sulci are normal. Bones/joints: Unremarkable. Paranasal sinuses: Normal as visualized. No acute sinusitis. Mastoid air cells: No mastoid effusion. Orbital cavity: Unremarkable. Soft tissues: Unremarkable. IMPRESSION: No acute intracranial findings. Electronically signed by: Silvio Melton On 01/05/2021 20:40:53 PM
== END ==
LOC: M RAD 16:37
PROVIDERS: ATTEND Otolaryngology
DX: R43.1 Parosmia (principal)